=== PATIENT | male | born 1965 | race Two or more races ===

== ENCOUNTER 2024-12-24 09:08 | Emergency (ER) | payer OTHER ==
[~2024-12-24] VITALS: Ht 175.3 cm; Wt 77.1 kg
[2024-12-24] MEDS ORDERED: HYDROCORTISONE ACETATE 25 MG/SUPP.RECT SUPP.RECT RECTAL STA (10:09)
== END 2024-12-24 10:22 | disposition home or self-care (01) ==
LOC: ER 09:11
DX: K64.4 Residual hemorrhoidal skin tags (principal)

== ENCOUNTER 2025-06-18 12:53 | Emergency (ER) | payer OTHER ==
[~2025-06-18] VITALS: Ht 170.2 cm; Wt 77.1 kg
[2025-06-18 15:10] VITALS: O2SAT 99
[2025-06-18] MEDS ORDERED: FAMOTIDINE/PF 20 MG/2 ML VIAL IV PUSH STA (16:21)
[2025-06-18] MEDS ORDERED: LISINOPRIL 5 MG TABLET PO STA (16:22)
[2025-06-18 16:55] LABS: BASO % 0.3 % (0.1-1.2); EOS # 0.13 (0.04-0.54); EOS % 1.3 % (0.7-7.0); LYMPH # 1.78 (1.18-3.74); LYMPH % 17.4 % (19.3-53.1); MEAN PLATELET VOLUME 10.50 fl (9.4-12.4); MONO # 0.72 (0.24-0.82); MONO % 7.0 % (4.7-12.5); NEUT # 7.55 (1.56-6.13); NEUT % 73.8 % (34.0-71.1); RED CELL DISTRIBUTION WIDTH 12.3 % (11.6-14.4)
[2025-06-18 17:23] LABS: ALT/SGPT 27.0 U/L (12-78); AST/SGOT 14.0 U/L (15-37); BILIRUBIN TOTAL 0.4 mg/dL (0.3-1.2); BUN CREA RATIO 23.0 (7.0-25.0); CREATININE SERUM 0.93 mg/dL (0.70-1.30); GFR 82.88; GLOBULINA 3.8 G/DL (2.4-3.5); GLUCOSE FASTING 167.0 mg/dL (65-100); OSMOLALITY SERUM 284.0 MOSM/KG (275-295)
[2025-06-18 18:20] VITALS: BP 140/80
== END 2025-06-18 18:38 | disposition home or self-care (01) ==
LOC: ER 13:06
PROVIDERS: General Practice
DX: I10 Essential (primary) hypertension (principal); R07.9 Chest pain, unspecified